=== PATIENT | male | born 1945 | race Caucasian/White ===

== ENCOUNTER → 2019-04-05 | Outpatient (CLI) | payer OTHER ==
--- NOTE | 2019-04-05 10:20 | RAD ---
LEFT LEG VENOUS DOPPLER STUDY: Clinical indications: Left leg swelling and pain. Findings: Duplex sonography (including nice scale evaluation and color flow and waveform spectral analysis) of the proximal aspect of the greater saphenous vein and the proximal aspect of the profunda femoral vein and the entire length of the common femoral and superficial femoral and popliteal veins and the tibioperoneal trunk and the proximal aspect of the posterior tibial and peroneal veins of the left leg was performed. Normal compressibility, augmentation of color Doppler flow after calf compression, and respiratory variation of Doppler flow is seen. Thus, there are no sonographic findings of deep venous thrombosis within these veins. Impression: There are no sonographic findings of deep venous thrombosis within the veins discussed above of the left lower extremity. RIGHT LEG VENOUS DOPPLER STUDY: Clinical indications: Right leg swelling and pain. Findings: Duplex sonography (including nice scale evaluation and color flow and waveform spectral analysis) of the proximal aspect of the greater saphenous vein and proximal aspect of the profunda femoral vein and the entire length of the common femoral and superficial femoral and popliteal veins and the tibioperoneal trunk and the proximal aspect of the posterior tibial and peroneal veins of the right leg was performed. Normal compressibility, augmentation of color Doppler flow after calf compression, and respiratory variation of Doppler flow is seen. Thus, there are no sonographic findings of deep venous thrombosis within these veins. Impression: There are no sonographic findings of deep venous thrombosis within the veins discussed above of the right lower extremity. Electronically signed by: Jose Fraser MD (04/05/2019 10:17 AM) [id number]
--- NOTE | 2019-04-05 17:04 | RAD ---
Venous reflux study: INDICATION: Bilateral leg edema and venous insufficiency. TECHNIQUE: Sonographic evaluation of the bilateral lower extremity veins was performed with diameter measurement and evaluation for reflux with Valsalva. FINDINGS: Right leg: No reflux in the right greater or small saphenous vein. Diameter measurements are as follows: 9.4 mm at the saphenofemoral junction 7.4 mm at the proximal greater saphenous vein 4.5 mm in the mid right greater saphenous vein 3.5 mm at the saphenopopliteal junction 2.2 mm at the proximal small saphenous vein. Left leg: No reflux in the left greater or small saphenous vein. Diameter measurements are as follows: 8.7 mm at the saphenofemoral junction 4.5 mm at the proximal greater saphenous vein 3.1 mm in the mid right greater saphenous vein 3.1 mm at the saphenopopliteal junction 2.2 mm at the proximal small saphenous vein. IMPRESSION: No evidence of venous reflux in either lower extremity saphenous veins. Electronically signed by: Maninder Rondon MD (04/05/2019 5:01 PM) [id number]
== END | disposition home or self-care (01) ==
LOC: US 08:33
PROVIDERS: ATTEND Nurse Practitioner
DX: R60.0 Localized edema (principal); M79.89 Other specified soft tissue disorders
CPT/HCPCS: 93970